=== PATIENT | female | born 1995 | race African-American/Black ===

== ENCOUNTER 2017-10-30 19:23 | Emergency (ER) | payer OTHER ==
[2017-10-30 19:35] VITALS: BP 124/86
[2017-10-30] MEDS ORDERED: HYDROCOD/APAP 5/325 PREPACK#6 BTL TAKEHOME ONE (20:08)
--- NOTE | 2017-10-30 20:10 | EDPHY ---
H & P Stated Complaint: Hit in head yesterday - headache. Time Seen by Provider: 10/30/17 19:26 - Personal History LMP (Females 10-55): 8-14 Days Ago Current Tetanus/Diphtheria Vaccine: Yes Current Tetanus Diphtheria and Acellular Pertussis (TDAP): Yes - Medical/Surgical History Hx Asthma: No Hx Chronic Respiratory Disease: No Hx Diabetes: No Hx Cardiac Disease: No Hx Renal Disease: No Hx Cirrhosis: No Hx Alcoholism: No Hx HIV/AIDS: No Hx Splenectomy or Spleen Trauma: No Other PMH: Pneumonia, tonislectomy, heart murmur. - Social History Smoking Status: Never smoked Constitutional: Initial Vital Signs Temperature (C) 37.1 C 10/30/17 19:30 Heart Rate 99 10/30/17 19:30 Respiratory Rate 16 10/30/17 19:30 Blood Pressure 124/86 H 10/30/17 19:30 O2 Sat (%) 97 10/30/17 19:30 O2 Delivery Mode Room Air Allergies/Adverse Reactions: No Known Allergies Allergy (Unverified 10/30/17 19:35) Home Medications: Medication Instructions Recorded Ibuprofen [Motrin] 800 mg PO Q8 #20 tab 10/30/17 Medical Decision Making ED Course/Re-evaluation: CHIEF COMPLAINT: Hit in head with elbow HISTORY OF PRESENT ILLNESS: Healthy 22-year-old female playing basketball yesterday. She was hit with an elbow and the right head just behind the ear and along the mastoid process. She denies loss of consciousness, denies amnesia , denies nausea vomiting, denies headache, just feels like she is having some pain along the right mastoid process and feeling a little fuzzy doing her school project. REVIEW OF SYSTEMS: A 10 point review of systems was performed and is negative with the exception of the elements mentioned in the history of present illness. PHYSICAL EXAM: HR, BP, O2 Sat, RR. Temp noted General Appearance: Alert, well hydrated, appropriate, and non-toxic appearing. Head: Atraumatic without scalp tenderness or obvious injury Eyes: Pupils equal, round, reactive to light and accommodation, EOMI, no trauma , no injection. Ears: Clear bilaterally, no perforation, normal landmarks Nose: Atraumatic, no rhinorrhea, clear. Throat: There is no erythema or exudates, no lesions, normal tonsils, mucus membranes moist. Neck: Supple, 2+ carotid upstroke, nontender, no lymphadenopathy. Respiratory: No retractions, no distress, no wheezes, and no accessory muscle use. Lungs are clear to auscultation bilaterally. Cardiovascular: Regular rate and rhythm, no murmurs, rubs, or gallops. Bilateral carotid, radial, dorsalis pedis, and posterior tibial pulses intact. Good capillary refill all extremities. Gastrointestinal: Abdomen is soft, nontender, non-distended, no masses, no rebound, no guarding, no peritoneal signs. Musculoskeletal: Normal active ROM of all extremities, atraumatic. Neurological: Alert, appropriate, and interactive. The patient has normal DTRs and non-focal cranial nerves, motor, sensory, and cerebellar exam. Skin: No rashes, good turgor, no nodules on palpation. Past medical history: Noncontributory Past surgical history: None Family history: Noncontributory Social history: Single, student, does not abuse tobacco drugs or alcohol DIAGNOSTICS/PROCEDURES/CRITICAL CARE TIME: Long discussion about utility of head CT and the risk of radiation outweighs the benefit based on the [place] head CT rules and the [facility] CT rules set DIFFERENTIAL DIAGNOSIS: The differential diagnosis for the patient's head injury included but was not limited to concussion, skull fracture, intra- parenchymal contusion, subarachnoid, subdural and epidural hematoma. MEDICAL DECISION MAKING: This patient has a mild concussion. She meets no criteria for any neuro imaging. I will give her some ibuprofen and a few Vicodin to go home with. I will give her a booklet about concussions. She will follow up with student health at the [employer]. Departure - Departure Disposition: Home, Routine, Self-Care Clinical Impression: Concussion Qualifiers: Encounter type: initial encounter Loss of consciousness presence/duration: without LOC Qualified Code(s): S06.0X0A - Concussion without loss of consciousness, initial encounter Contusion Qualifiers: Encounter type: initial encounter Contusion area: head Contusion of head detail : ear Laterality: right Qualified Code(s): S00.431A - Contusion of right ear, initial encounter Condition: Good Instructions: Hydrocodone/Acetaminophen (By mouth), Concussion (ED), Contusion in Adults (ED) Referrals: NONE *PRIMARY CARE P,. [Primary Care Provider] - As per Instructions Prescriptions: Ibuprofen [Motrin] 800 mg PO Q8 #20 tab
== END 2017-10-30 20:20 | disposition home or self-care (01) ==
DX: S06.0X0A Concussion without loss of consciousness, initial encounter (principal); S00.431A Contusion of right ear, initial encounter; W51.XXXA Accidental striking against or bumped into by another person, initial encounter; Y99.8 Other external cause status; Y93.67 Activity, basketball